=== PATIENT | female | born 1985 | race Caucasian/White ===

== ENCOUNTER 2018-07-21 15:09 | Emergency (ER) | payer OTHER ==
[2018-07-21 15:32] VITALS: BP 163/82; PULSE 61; TEMP 97.9
--- NOTE | 2018-07-21 16:22 | PDOC ---
History of Present Illness - General Chief Complaint: Urinary Problem Stated Complaint: POSSIBLE UTI Time Seen by Provider: 07/21/18 15:50 - History of Present Illness Initial Comments: 07/21/18 16:21 Patient denies N/V, F,C, CP, SOB, urinary complaints, abdominal pain, diarrhea, constipation, lightheadedness, weakness, sensory changes. PMHx: as noted above ROS: as noted SHx: Allergies: Past History - Past Medical History Allergies/Adverse Reactions: Allergies Allergy/AdvReac Type Severity Reaction Status Date / Time sulfamethoxazole Allergy Verified 07/21/18 15:32 [From Bactrim] trimethoprim [From Bactrim] Allergy Verified 07/21/18 15:32 COPD: No Psychiatric Problems: Yes (anxiety, bipolar) - Suicide/Smoking/Psychosocial Hx Smoking History: Never smoked Review of Systems - Review of Systems Comments:: 07/21/18 16:21 GENERAL/CONSTITUTIONAL: No fever or chills. No weakness. HEAD, EYES, EARS, NOSE AND THROAT: No change in vision. No ear pain or discharge. No sore throat. CARDIOVASCULAR: No chest pain or shortness of breath RESPIRATORY: No cough, wheezing, or hemoptysis. GASTROINTESTINAL: No nausea, vomiting, diarrhea or constipation. GENITOURINARY: No dysuria, frequency, or change in urination. MUSCULOSKELETAL: No joint or muscle swelling or pain. No neck or back pain. SKIN: No rash NEUROLOGIC: No headache, vertigo, loss of consciousness, or change in strength/ sensation. ENDOCRINE: No increased thirst. No abnormal weight change HEMATOLOGIC/LYMPHATIC: No anemia, easy bleeding, or history of blood clots. ALLERGIC/IMMUNOLOGIC: No hives or skin allergy. *Physical Exam - Vital Signs Last Vital Signs Temp Pulse Resp BP Pulse Ox 97.9 F 61 18 163/82 99 07/21/18 15:26 07/21/18 15:26 07/21/18 15:26 07/21/18 15:26 07/21/18 15:26 - Physical Exam Comments: 07/21/18 16:22 GENERAL: Awake, alert, and fully oriented, in no acute distress HEAD: No signs of trauma, normocephalic, atraumatic EYES: PERRLA, EOMI, sclera anicteric, conjunctiva clear ENT: Auricles normal inspection, hearing grossly normal, nares patent, oropharynx clear without exudates. Moist mucosa NECK: Normal ROM, supple, no lymphadenopathy, JVD, or masses LUNGS: No distress, speaks full sentences, clear to auscultation bilaterally HEART: Regular rate and rhythm, normal S1 and S2, no murmurs, rubs or gallops, peripheral pulses normal and equal bilaterally. ABDOMEN: Soft, nontender, normoactive bowel sounds. No guarding, no rebound. No masses EXTREMITIES : Normal inspection, Normal range of motion, no edema. No clubbing or cyanosis. NEUROLOGICAL: Cranial nerves II through XII grossly intact. Normal speech, normal gait, no focal sensorimotor deficits SKIN: Warm, Dry, normal turgor, no rashes or lesions noted Moderate Sedation - Procedure Monitoring Vital Signs: Procedure Monitoring Vital Signs Temperature 97.9 F 07/21/18 15:26 Pulse Rate 61 07/21/18 15:26 Respiratory Rate 18 07/21/18 15:26 Blood Pressure 163/82 07/21/18 15:26 O2 Sat by Pulse Oximetry (%) 99 07/21/18 15:26 *DC/Admit/Observation/Transfer - Referrals Referrals: Ted Schuster [Primary Care Provider] - - Patient Instructions Additional Instructions: Please return to the emergency department with any new or worsening symptoms or concerns. Please follow up with your primary care physician within 72 hours. - Post Discharge Activity - Attestations Physician Attestion: 07/21/18 16:22 I attest to the information provided in this note.
[2018-07-21] MEDS ORDERED: MORPHINE SULFATE 2 MG/ML VIAL IVPUSH ONE (16:57)
--- NOTE | 2018-07-21 16:58 | PDOC ---
Attending Attestation - Resident Resident Name: Karissa Piersoneen - ED Attending Attestation I have performed the following: I have examined & evaluated the patient, The case was reviewed & discussed with the resident, I agree w/resident's findings & plan, Exceptions are as noted - HPI HPI: 07/21/18 16:57 32 yo female p/w low back pain radiating to suprupubic area - Physicial Exam PE: 07/21/18 21:40 slender 32 yo female p/w pelvic pain head ncat neck supple lungs cta b/l cvs [id number] abd no right lower or left lower quadrant pain,no guarding pelvic ++suprapubic pain ext no edema no cva tenderness but some band like low back pain in area of L5 skin warm and dry neuro axox3,ambulatory,no gross focal neuro deficits - Medical Decision Making 07/21/18 17:55 32 yo female p/w suprapubic pain and low back pain Denies any chills,fever,nausea or vomiting 07/21/18 17:57 PSH nephrectomy at 19 07/21/18 19:51 cg =o.7, bun=7 cbc reveals leukocytosis 07/21/18 20:51 UA+>2400 wbcs pelvic exam reveals erythematous ,tender cervix imp PID plan antibiotics, also followup with anodic operator Pt mentioned she actually has a doctor's appt already scheduled for this week 07/21/18 21:34 ct scan : no kidney stones, no ureteral obstruction,clips on left side from partial nephrectomy), no hydronephrosis
[2018-07-21] MEDS ORDERED: SODIUM CHLORIDE 1,000 ML IV STA (17:12)
--- NOTE | 2018-07-21 17:12 | PDOC ---
History of Present Illness - General Chief Complaint: Urinary Problem Stated Complaint: POSSIBLE UTI Time Seen by Provider: 07/21/18 15:50 History Source: Patient Exam Limitations: No Limitations - History of Present Illness Initial Comments: 07/21/18 17:46 Patient is a 32 year old female with a significant PMHx of left partial Nephrectomy at the age of 19, Bipolar disorder, anxiety, PTSD who presents here today complaining of lower back pain radiating around her lower abdomen bilaterally. Patient describes the abdominal pain as a constant, stabbing like pain associated with nausea, vomiting, and urinary urgency that started yesterday. She took Naproxen with no relief of symptoms, which prompted this hospital visit. Patient otherwise denies any fever, chest pain, palpitations, shortness of breath, headaches, dizziness, dysuria, hematuria, hematemesis, hematochezia, melena, hemoptysis, diarrhea, constipation. PMHx: Bipolar Disorder Anxiety PTSD PSHx: Partial Left Nephrectomy (2004 Social Hx: Denies smoking Denies alcohol use Smokes marijuana every other day Unemployed Family Hx: Dad- DM, CAD Mother- HTN, CAD Past History - Past Medical History Allergies/Adverse Reactions: Allergies Allergy/AdvReac Type Severity Reaction Status Date / Time sulfamethoxazole Allergy Verified 07/21/18 15:32 [From Bactrim] trimethoprim [From Bactrim] Allergy Verified 07/21/18 15:32 Home Medications: Ambulatory Orders Doxycycline Hyclate 100 mg PO BID 14 Days #28 tablet 07/21/18 Folic Acid 1 mg PO DAILY 07/21/18 Metronidazole 500 mg PO BID 07/21/18 Mirtazapine [Remeron -] 15 mg PO DAILY 07/21/18 Ondansetron [Zofran Odt -] 4 mg SL PRN 07/21/18 Quetiapine Fumarate [Seroquel] 100 mg PO HS 07/21/18 COPD: No Psychiatric Problems: Yes (anxiety, bipolar) - Suicide/Smoking/Psychosocial Hx Smoking History: Never smoked Review of Systems - Review of Systems Constitutional: Yes: Chills. No: Diaphoresis, Fever, Night Sweats HEENTM: No: Nose Congestion, Throat Pain Respiratory: No: Cough, Orthopnea, Shortness of Breath, SOB with Exertion, SOB at Rest, Wheezing, Productive cough, Hemoptysis Cardiac (ROS): No: Chest Pain, Edema, Irregular Heart Rate, Lightheadedness, Palpitations, Syncope, Chest Tightness ABD/GI: Yes: Nausea, Vomiting, Other (lower abdominal pain ). No: Abdominal Distended, Constipated, Diarrhea, Indigestion : Yes: Flank Pain, Urgency. No: Burning, Dysuria, Discharge, Frequency, Hematuria, Incontinence, Pain Musculoskeletal: Yes: Back Pain (lower ) Integumentary: No: Bruising, Erythema, Sweating Neurological: No: Headache, Numbness, Tremors *Physical Exam - Vital Signs Last Vital Signs Temp Pulse Resp BP Pulse Ox 97.9 F 61 18 163/82 99 07/21/18 15:26 07/21/18 15:26 07/21/18 15:26 07/21/18 15:26 07/21/18 15:26 - Physical Exam General Appearance: Yes: Other (Awake, alert oriented x3, in moderate painful distress ) HEENT: positive: EOMI, MICHAEL, Normal ENT Inspection, Normal Voice, Pharynx Normal. negative: Sinus Tenderness Neck: positive: Supple. negative: Decreased range of motion, Lymphadenopathy (R ), Lymphadenopathy (L) Respiratory/Chest: positive: Lungs Clear, Normal Breath Sounds. negative: Chest Tender, Respiratory Distress, Accessory Muscle Use, Crackles, Rales, Rhonchi, Wheezing Cardiovascular: positive: Regular Rhythm, Regular Rate, S1, S2. negative: Edema , JVD, Murmur Gastrointestinal/Abdominal: positive: Other (Soft, tenderness upon palpation of lower abdominal pain) Musculoskeletal: positive: CVA Tenderness (bilaterally ), CVA Tenderness (R), CVA Tenderness (L). negative: Decreased Range of Motion, Vertebral Tenderness Extremity: positive: Normal Capillary Refill, Normal Inspection, Normal Range of Motion, Pelvis Stable. negative: Swelling, Calf Tenderness, Erythema Integumentary: positive: Normal Color, Dry, Warm Neurologic: positive: consumer affairs specialist II-XII NML intact, Fully Oriented, Alert, Normal Mood/ Affect, Normal Response, Motor Strength 5/5 Moderate Sedation - Procedure Monitoring Vital Signs: Procedure Monitoring Vital Signs Temperature 97.9 F 07/21/18 15:26 Pulse Rate 61 07/21/18 15:26 Respiratory Rate 18 07/21/18 15:26 Blood Pressure 163/82 07/21/18 15:26 O2 Sat by Pulse Oximetry (%) 99 07/21/18 15:26 ED Treatment Course - LABORATORY CBC & Chemistry Diagram: 07/21/18 17:00 07/21/18 17:00 Medical Decision Making - Medical Decision Making 07/21/18 17:24 Patient is a 32 year old female with a significant PMHx of left partial nephrectomy (patient unsure why) who presents here for severe abdominal and flank pain that started yesterday associated with nausea, vomiting, and urgency. DDx includes, but not limited to, UTI, Pyelonephritis, Nephrolithiasis. -CBC, CMP, Uric Acid, B-hcg -U/A, Urine culture -Uric Acid 07/21/18 18:20 -U/A revealed 2+ blood, 3+ LE with >2000 of WBC in urine -CBC revealed 14 WBC -Will give Levaquin 750mg PO and prescribe it to her pharmacy -Spiral CT ordered to rule out nephrolithiasis 07/21/18 19:30 -Sign out given to Dr. Mae *DC/Admit/Observation/Transfer Diagnosis at time of Disposition: PID (acute pelvic inflammatory disease) - Discharge Dispostion Disposition: HOME Condition at time of disposition: Good - Prescriptions Prescriptions: Doxycycline Hyclate 100 mg PO BID 14 Days #28 tablet - Referrals Schedule a call back: Call with urine and GC/C/T results Referrals: Ted Schuster [Primary Care Provider] - Zully Ni MD [Staff Physician] - - Patient Instructions Printed Discharge Instructions: DI for Pelvic Inflammatory Disease Additional Instructions: You were seen today for lower back pain that moved into the lower part of your abdomen. Your pelvic exam revealed signs and symptoms of acute Pelvic Inflammatory Disease. This is likely a bacterial infection of your cervix and the lower part of your pelvis. You were given two antibiotics in the department. Another antibiotic prescription was sent to your pharmacy. Take as directed on the package insert. Do not take more than the recommended dose. Your CT scan did show your liver was enlarged. Your liver blood work was not concerning. This is likely an incidental finding and not related to your pain today. Your primary care doctor will be able to help you manage. You can take over the counter Tylenol or Advil as needed for pain. Take as directed on the package insert. Do not exceed the recommended dosage. Follow up with your primary care doctor within the next 3-4 days, or at the appointment you already have scheduled. You should also follow up with a veterans service officer for care after your partial nephrectomy. I have placed a referral for you to see Dr. Ni. You can also discuss which veterans service officer to see with your primary care doctor. Go to the nearest emergency department if your condition worsens or you feel like you need additional emergency evaluation. Print Language: SINHALA - Post Discharge Activity
[2018-07-21] MEDS ORDERED: MORPHINE SULFATE 2 MG/ML VIAL ONE (17:13)
[2018-07-21 17:16] LABS: BASO % 0.5 % (0-2.0); EOS % 0.1 % (0-4.5); HEMATOCRIT 41.6 % (32.4-45.2); HEMOGLOBIN 14.8 GM/dL (10.7-15.3); LYMPH % 9.5 % (8-40); MCHC 35.7 g/dl (32.0-36.0); MEAN CELL VOLUME 89.8 fl (80-96); MEAN PLT VOLUME 8.5 fl (7.5-11.1); MONO % 7.9 % (3.8-10.2); PLATELET COUNT 203 K/MM3 (134-434); RBC 4.63 M/mm3 (3.60-5.2); RDW 13.5 % (11.6-15.6)
[2018-07-21] MEDS ORDERED: ONDANSETRON 4 MG/2 ML VIAL IVPUSH ONE (17:19)
[2018-07-21] MEDS ORDERED: ONDANSETRON 4 MG/2 ML VIAL ONE (17:19)
[2018-07-21 17:55] LABS: URINE APPEARANCE TURBID; URINE BILIRUBIN NEGATIVE (<2.0 mg/dL); URINE COLOR YELLOW; URINE GLUCOSE (UA) NEGATIVE (NEGATIVE); URINE KETONE 1+ (NEGATIVE); URINE LEUK ESTERASE 3+ (NEGATIVE); URINE NITRITE NEGATIVE (NEGATIVE); URINE PROTEIN 2+ (NEGATIVE); URINE UROBILINOGEN 4.0 E.U/dl mg/dL (0.2-1.0)
[2018-07-21 17:59] LABS: URINE MUCUS FEW
[2018-07-21 18:00] LABS: ALBUMIN 4.1 g/dl (3.4-5.0); ALK PHOS 54 U/L (45-117); ANION GAP 7 MMOL/L (8-16); BILIRUBIN,TOTAL 1.2 mg/dL (0.2-1); BLOOD UREA NITROGEN 7 mg/dL (7-18); CALCIUM 8.5 mg/dL (8.5-10.1); CHLORIDE 107 mmol/L (98-107); CO2 25 mmol/L (21-32); CREATININE 0.7 mg/dL (0.55-1.3); GLUCOSE,RANDOM 93 mg/dL (74-106); POTASSIUM 3.7 mmol/L (3.5-5.1); SGOT/AST 14 U/L (15-37); SGPT/ALT 20 U/L (13-61); SODIUM 139 mmol/L (136-145); TOT PROT 7.3 g/dl (6.4-8.2)
[2018-07-21 18:01] LABS: HCG,QUALITATIVE URINE Negative
[2018-07-21] MEDS ORDERED: ACETAMINOPHEN 1000 MG/100 ML VIAL (NON FORMULARY) IVPB ONE (18:03)
[2018-07-21] MEDS ORDERED: ACETAMINOPHEN INJECTION 100 ML IVPB ONE (18:25)
--- NOTE | 2018-07-21 19:36 | PDOC ---
*Physical Exam - Vital Signs Last Vital Signs Temp Pulse Resp BP Pulse Ox 97.9 F 61 18 163/82 99 07/21/18 15:26 07/21/18 15:26 07/21/18 15:26 07/21/18 15:26 07/21/18 15:26 - Physical Exam Comments: Female Pelvic: External genitalia unremarkable. Speculum exam with mild amount of whitish vaginal discharge. Vaginal wall mucosa is unremarkable. Cervix visualized and erythematous (closed in appearance without any protruding material). Bimanual exam with significant cervical motion tenderness. RN chaperoned exam. General Appearance: No: Apparent Distress HEENT: positive: Normal Voice Neck: positive: Supple Respiratory/Chest: negative: Respiratory Distress Cardiovascular: positive: Regular Rhythm, Regular Rate ED Treatment Course - LABORATORY CBC & Chemistry Diagram: 07/21/18 17:00 07/21/18 17:00 - ADDITIONAL ORDERS Additional order review: Laboratory Results 07/21/18 07/21/18 07/21/18 17:42 17:00 17:00 Sodium 139 Potassium 3.7 Chloride 107 Carbon Dioxide 25 Anion Gap 7 L BUN 7 Creatinine 0.7 Creat Clearance w eGFR > 60 Random Glucose 93 Uric Acid 3.1 Calcium 8.5 Total Bilirubin 1.2 H AST 14 L ALT 20 Alkaline Phosphatase 54 Total Protein 7.3 Albumin 4.1 Urine Color Yellow Urine Appearance Turbid Urine pH 6.0 Ur Specific [place] 1.025 Urine Protein 2+ H Urine Glucose (UA) Negative Urine Ketones 1+ H Urine Blood 2+ H Urine Nitrite Negative Urine Bilirubin Negative Urine Urobilinogen 4.0 e.u/dl H Ur Leukocyte Esterase 3+ H Urine WBC (Auto) 2486 Urine RBC (Auto) 151 Urine Mucus Few Urine HCG, Qual Negative 07/21/18 17:00 RBC 4.63 MCV 89.8 MCHC 35.7 RDW 13.5 MPV 8.5 Neutrophils % 82.0 Lymphocytes % 9.5 Monocytes % 7.9 Eosinophils % 0.1 Basophils % 0.5 - RADIOLOGY Radiograph Interpretation: Spiral CT without Contrast: Xavier Calderón MD wrote on Jul 21, 2018 at 09:16 PM: Referring Physician: JONAH PEGUERO Patient Name: BABATUNDE PAVON THIS IS A PRELIMINARY REPORT FROM [facility] DATE OF SERVICE: 2018-07-21 20:01:19 IMAGES: [id number] EXAM: CT abdomen/pelvis without contrast HISTORY: Rule out nephrolithiasis COMPARISON: None. FINDINGS: There is no hydronephrosis. There is no ureteral dilatation. There are no renal or ureteral calculi seen. There are surgical clips noted in the left retroperitoneum medial to the upper pole of the left kidney. There is hepatomegaly. There are no obvious gallstones. There is a moderate amount of stool noted in the colon. There is no evidence of intestinal obstruction. The appendix is normal in size. Urinary bladder is decompressed. There are no bladder calculi. Mild free fluid is noted in the dependent portion of the pelvis. One or more of the following dose reduction techniques were used: automated exposure control, adjustment of the mA and/or kV according to patient size, use of iterative reconstructive technique. THIS DOCUMENT HAS BEEN ELECTRONICALLY SIGNED Xavier Calderón MD 07/21/2018 21:15 EST - Medications Given in the ED: ED Medications Discontinued Medications Generic Name Dose Route Start Last Admin Trade Name Freq PRN Reason Stop Dose Admin Acetaminophen 1,000 mg 07/21/18 18:03 07/21/18 18:30 Ofirmev Injection - IVPB 07/21/18 18:04 1,000 mg ONCE ONE Administration Sodium Chloride 1,000 mls @ 1,000 mls/hr 07/21/18 17:12 07/21/18 17:10 Normal Saline - IV 07/21/18 18:11 1,000 mls/hr ASDIR STA Administration Levofloxacin 750 mg 07/21/18 18:15 07/21/18 18:30 Levaquin - PO 07/21/18 18:16 750 mg ONCE ONE Administration Morphine Sulfate 2 mg 07/21/18 16:57 07/21/18 17:10 Morphine Sulfate IVPUSH 07/21/18 16:58 2 mg ONCE ONE Administration Ondansetron HCl 4 mg 07/21/18 17:19 07/21/18 17:15 Zofran Injection IVPUSH 07/21/18 17:20 4 mg ONCE ONE Administration Medical Decision Making - Medical Decision Making 07/21/18 19:34 Received sign out from resident Dr. Pierson. In short, pt is a 32 y /o female complaining of bilateral lower back pain with radiation to lower abdomen. H/o of partial nephrectomy. UA suggestive for infection. Has received first dose of Levaquin in the department. To be prescribed Levaquin 750 q.daily for [address] Will follow up. Physical exam concerning for PID with cervicitis and significant CMT. UA remarkable for pyuria and leukocyte esterase. Will change antibiotic therapy to single dose of ceftriaxone and 14 day outpatient course of doxycycline. Upreg negative. CT scan remarkable for nephropathies or hydronephrosis. Hepatomegaly noted; low suspicion for involvement with today's complaint. LFTs not elevated. Noted mild pelvic fluid; suspect secondary to PID. Discussed imaging and laboratory results with pt. Answered all questions. Provided return precautions. Pt expressed verbal understanding and agreement with plan to discharge home with outpatient follow up. Already has appointment scheduled for this week. Also provided nephrology referral as pt as not established care after being discharged from pediatric neurologist service. *DC/Admit/Observation/Transfer Diagnosis at time of Disposition: PID (acute pelvic inflammatory disease) - Discharge Dispostion Disposition: HOME Condition at time of disposition: Good Decision to Admit order: No - Prescriptions Prescriptions: Doxycycline Hyclate 100 mg PO BID 14 Days #28 tablet - Referrals Schedule a call back: Call with urine and GC/C/T results Referrals: Ted Schuster [Primary Care Provider] - Zully Ni MD [Staff Physician] - - Patient Instructions Printed Discharge Instructions: DI for Pelvic Inflammatory Disease Additional Instructions: You were seen today for lower back pain that moved into the lower part of your abdomen. Your pelvic exam revealed signs and symptoms of acute Pelvic Inflammatory Disease. This is likely a bacterial infection of your cervix and the lower part of your pelvis. You were given two antibiotics in the department. Another antibiotic prescription was sent to your pharmacy. Take as directed on the package insert. Do not take more than the recommended dose. Your CT scan did show your liver was enlarged. Your liver blood work was not concerning. This is likely an incidental finding and not related to your pain today. Your primary care doctor will be able to help you manage. You can take over the counter Tylenol or Advil as needed for pain. Take as directed on the package insert. Do not exceed the recommended dosage. Follow up with your primary care doctor within the next 3-4 days, or at the appointment you already have scheduled. You should also follow up with a cut lace machine operator for care after your partial nephrectomy. I have placed a referral for you to see Dr. Ni. You can also discuss which cut lace machine operator to see with your primary care doctor. Go to the nearest emergency department if your condition worsens or you feel like you need additional emergency evaluation. Print Language: BULGARIAN - Post Discharge Activity
[2018-07-21] MEDS ORDERED: DOXYCYCLINE HYCLATE 100 MG CAPSULE PO ONE ×2 (20:54→20:59)
[2018-07-21] MEDS ORDERED: IBUPROFEN 600 MG TABLET (FP) PO ONE ×2 (21:30→21:33)
== END 2018-07-21 22:16 | disposition home or self-care (01) ==
LOC: JER 15:09
PROC: 3E033NZ Introduction of Analgesics, Hypnotics, Sedatives into Peripheral Vein, Percutaneous Approach (ICD-10-PCS; principal; 2018-07-21)
PROC: 3E03329 Introduction of Other Anti-infective into Peripheral Vein, Percutaneous Approach (ICD-10-PCS; 2018-07-21)
PROC: 3E0337Z Introduction of Electrolytic and Water Balance Substance into Peripheral Vein, Percutaneous Approach (ICD-10-PCS; 2018-07-21)
PROC: 3E033GC Introduction of Other Therapeutic Substance into Peripheral Vein, Percutaneous Approach (ICD-10-PCS; 2018-07-21)
DX: N73.9 Female pelvic inflammatory disease, unspecified (principal); F31.9 Bipolar disorder, unspecified; F41.9 Anxiety disorder, unspecified; F43.10 Post-traumatic stress disorder, unspecified
CPT/HCPCS: 36415; 74176; 80053; 81003; 81015; 84550; 84703; 85025; 87086; 87186; 87491; 87591; 87661; 96361; 96374; 96375; 99282-25; J0131; J7030